=== PATIENT | female | born 1990 | race Caucasian/White ===

== ENCOUNTER 2016-06-24 20:47 | Emergency (ER) | payer MEDICAID ==
[2014-10-16 10:02] VITALS: BMI 36.2
[~2016-06-24 20:47] MED LIST: BUSPAR5 MG PO; PROAIR HFA8.5 GM INH; VIMOVO 500-201 EACH PO
== END 2016-06-24 22:30 | disposition home or self-care (01) ==
LOC: D.ER 20:47
DX: H66.42 Suppurative otitis media, unspecified, left ear (principal); H60.12 Cellulitis of left external ear; J45.909 Unspecified asthma, uncomplicated; F17.200 Nicotine dependence, unspecified, uncomplicated

== ENCOUNTER 2016-12-05 14:16 | Emergency (ER) | payer MEDICAID ==
[2014-10-16 10:02] VITALS: BMI 36.2
[2016-12-05 15:02] LABS: BASOPHILS 0.1 % (0-2); EOSINOPHILS 2.2 % (0-7); HEMATOCRIT 37.6 % (36.0-48.0); HEMOGLOBIN 12.7 g/dL (12-16); IMMATURE GRANULOCYTES 0.2 % (0-5); LYMPHOCYTES 7.7 % (15-50); MCH 27.5 pg (26.0-34.0); MCHC 33.8 g/dL (31.0-37.0); MCV 81.6 fL (80.0-100.0); MEAN PLATELET VOLUME 9.8 fL (7.4-10.4); MONOCYTES 7.7 % (2-11); NEUTROPHILS 82.1 % (40-80); PLATELET COUNT 283 10x3/uL (130-400); RBC 4.61 10x6/uL (4.00-5.40); RDW 14.7 % (11.5-14.5); WBC 12.3 10x3/uL (4.8-10.8)
[2016-12-05 15:23] LABS: HCG SERUM POSITIVE (NEGATIVE)
[2016-12-05 17:09] LABS: APPEARANCE CLOUDY (CLEAR); BILIRUBIN NEGATIVE (NEGATIVE); COLOR DK YELLOW (YELLOW); GLUCOSE NEGATIVE (NEGATIVE); KETONE NEGATIVE (NEGATIVE); NITRITE NEGATIVE (NEGATIVE); PROTEIN 1+ mg/dL (NEGATIVE); UROBILINOGEN NORMAL (NORMAL)
[2016-12-05 17:13] LABS: EPITHELIAL CELLS 0-5 /hpf (0-5); RED CELLS - URINE >50 /hpf (0-5); WHITE CELLS - URINE 0-5 /hpf (0-5)
[2016-12-05 17:14] LABS: BACTERIA FEW /hpf (NONE SEEN)
[2016-12-05 21:36] LABS: BASOPHILS 0.1 % (0-2); EOSINOPHILS 0 % (0-7); HEMATOCRIT 30.5 % (36.0-48.0); HEMOGLOBIN 10.5 g/dL (12-16); IMMATURE GRANULOCYTES 0.1 % (0-5); LYMPHOCYTES 3.9 % (15-50); MCHC 34.4 g/dL (31.0-37.0); MCV 81.3 fL (80.0-100.0); MEAN PLATELET VOLUME 9.8 fL (7.4-10.4); MONOCYTES 4.3 % (2-11); NEUTROPHILS 91.6 % (40-80); PLATELET COUNT 280 10x3/uL (130-400); RBC 3.75 10x6/uL (4.00-5.40); RDW 14.5 % (11.5-14.5); WBC 14.5 10x3/uL (4.8-10.8)
== END 2016-12-05 21:47 | disposition home or self-care (01) ==
LOC: D.ER 14:16
PROVIDERS: Emergency Medicine; Nurse Practitioner Acute Care
DX: O03.9 Complete or unspecified spontaneous abortion without complication (principal); F17.200 Nicotine dependence, unspecified, uncomplicated

== ENCOUNTER 2017-11-25 06:01 | Emergency (ER) | payer MEDICAID ==
[~2017-11-25] VITALS: Ht 172.7 cm; Wt 90.9 kg
[2017-11-25 06:04] VITALS: Ht 172.7 cm; Wt 90.9 kg
[2017-11-25] MEDS ORDERED: TYLENOL W/CODEI1 TAB PO (06:16)
[2017-11-25 07:35] VITALS: BP 132/89
== END 2017-11-25 07:35 | disposition home or self-care (01) ==
LOC: D.ER 06:01
DX: S01.01XA Laceration without foreign body of scalp, initial encounter (principal); W10.9XXA Fall (on) (from) unspecified stairs and steps, initial encounter; Y93.89 Activity, other specified; Y92.019 Unspecified place in single-family (private) house as the place of occurrence of the external cause; S09.90XA Unspecified injury of head, initial encounter; S60.221A Contusion of right hand, initial encounter

== ENCOUNTER 2017-12-07 12:27 | Emergency (ER) | payer MEDICAID ==
[~2017-12-07] VITALS: Ht 172.7 cm; Wt 90.9 kg
[~2017-12-07 12:27] MED LIST changes: +TYLENOL W/CODEI1 TAB PO
[2017-12-07 12:34] VITALS: Ht 172.7 cm; Wt 90.9 kg
== END 2017-12-07 12:55 | disposition home or self-care (01) ==
LOC: D.ER 12:27
DX: S01.01XD Laceration without foreign body of scalp, subsequent encounter (principal); X58.XXXD Exposure to other specified factors, subsequent encounter; Z48.02 Encounter for removal of sutures; F17.200 Nicotine dependence, unspecified, uncomplicated

== ENCOUNTER 2018-02-19 19:44 | Emergency (ER) | payer MEDICAID ==
[~2018-02-19] VITALS: Ht 172.7 cm; Wt 95.3 kg
[2018-02-19 19:48] VITALS: Ht 172.7 cm; Wt 95.3 kg
[2018-02-19] MEDS ORDERED: VISTARIL25 MG PO (20:43)
[2018-02-19 21:26] VITALS: BP 121/72
== END 2018-02-19 21:27 | disposition home or self-care (01) ==
LOC: D.ER 19:44
DX: F41.9 Anxiety disorder, unspecified (principal); F17.200 Nicotine dependence, unspecified, uncomplicated

== ENCOUNTER 2018-02-28 19:07 | Emergency (ER) | payer MEDICAID ==
[~2018-02-28] VITALS: Ht 172.7 cm; Wt 90.9 kg
[~2018-02-28 19:07] MED LIST changes: +VISTARIL25 MG PO
[2018-02-28 19:18] VITALS: Ht 172.7 cm; Wt 90.9 kg
[2018-02-28 19:48] LABS: BASOPHILS 0.1 % (0-2); EOSINOPHILS 0.2 % (0-7); HEMATOCRIT 39.4 % (36.0-48.0); HEMOGLOBIN 12.5 g/dL (12-16); IMMATURE GRANULOCYTES 0.4 % (0-5); LYMPHOCYTES 11.2 % (15-50); MCH 23.5 pg (26.0-34.0); MCHC 31.7 g/dL (31.0-37.0); MCV 73.9 fL (80.0-100.0); MEAN PLATELET VOLUME 10.1 fL (7.4-10.4); MONOCYTES 7.3 % (2-11); NEUTROPHILS 80.8 % (40-80); PLATELET COUNT 293 10x3/uL (130-400); RBC 5.33 10x6/uL (4.00-5.40); RDW 15.9 % (11.5-14.5)
[2018-02-28 20:01] LABS: APPEARANCE CLEAR (CLEAR); BILIRUBIN NEGATIVE (NEGATIVE); COLOR YELLOW (YELLOW); GLUCOSE NEGATIVE (NEGATIVE); KETONE NEGATIVE (NEGATIVE); NITRITE NEGATIVE (NEGATIVE); PROTEIN NEGATIVE (NEGATIVE); SPECIFIC GRAVITY 1.025 (1.005-1.020); UROBILINOGEN NORMAL (NORMAL)
[2018-02-28 20:02] LABS: UDS - AMPHET NEGATIVE QUAL (NEGATIVE); UDS - BARB NEGATIVE QUAL (NEGATIVE); UDS - BENZO NEGATIVE QUAL (NEGATIVE); UDS - COCAINE NEGATIVE QUAL (NEGATIVE); UDS - OPIATE NEGATIVE QUAL (NEGATIVE); UDS - PCP NEGATIVE QUAL (NEGATIVE); UDS - THC NEGATIVE QUAL (NEGATIVE)
[2018-02-28 20:10] LABS: ALKALINE PHOSPHATASE 69 U/L (46-116); ALT (SGPT) 22 U/L (10-68); CALC OSMOLALITY 282 mosm/kg (275-300); CALCIUM 9.3 mg/dL (8.5-10.1); CARBON DIOXIDE 24.1 mmol/L (21.0-32.0); CHLORIDE - SERUM 105 mmol/L (98-107); CREATININE - SERUM 0.7 mg/dL (0.6-1.3); GLUCOSE 88 mg/dL (74-106); POTASSIUM - SERUM 3.2 mmol/L (3.5-5.1); SODIUM 143 mmol/L (136-145); UREA NITROGEN 9 mg/dL (7-18); eGFR NON AFRICAN AMERICAN > 90 mL/min (90-120)
[2018-02-28 22:30] LABS: HCG URINE NEGATIVE (NEGATIVE)
[2018-02-28 23:33] VITALS: BP 132/81
== END 2018-03-01 00:03 ==
LOC: D.ER 19:07
PROVIDERS: Emergency Medicine
DX: F23 Brief psychotic disorder (principal); F17.200 Nicotine dependence, unspecified, uncomplicated

== ENCOUNTER 2018-06-29 19:12 | Emergency (ER) | payer MEDICAID ==
[2018-06-29 19:14] VITALS: BMI 32.6
[2018-06-29] MEDS ORDERED: KLONOPIN1 MG PO (19:16)
[2018-06-29] MEDS ORDERED: LITHIUM CARBON150 MG PO (19:16)
[2018-06-29] MEDS ORDERED: BUTALB-APAP-CA1 EACH PO (19:17)
[2018-06-29] MEDS ORDERED: GABAPENTIN100 MG PO (19:17)
[2018-06-29 19:45] LABS: BASOPHILS 0.2 % (0-2); EOSINOPHILS 5.5 % (0-7); HEMATOCRIT 33.7 % (36.0-48.0); HEMOGLOBIN 10.8 g/dL (12-16); IMMATURE GRANULOCYTES 0.1 % (0-5); LYMPHOCYTES 11.8 % (15-50); MCH 24.6 pg (26.0-34.0); MCV 76.8 fL (80.0-100.0); MONOCYTES 8.3 % (2-11); NEUTROPHILS 74.1 % (40-80); PLATELET COUNT 305 10x3/uL (130-400); RBC 4.39 10x6/uL (4.00-5.40); RDW 15.4 % (11.5-14.5); WBC 10.5 10x3/uL (4.8-10.8)
[2018-06-29 19:46] LABS: APPEARANCE HAZY (CLEAR); BILIRUBIN NEGATIVE (NEGATIVE); COLOR DK YELLOW (YELLOW); GLUCOSE NEGATIVE (NEGATIVE); KETONE NEGATIVE (NEGATIVE); NITRITE NEGATIVE (NEGATIVE); PROTEIN TRACE mg/dL (NEGATIVE); SPECIFIC GRAVITY 1.025 (1.005-1.020); UROBILINOGEN NORMAL (NORMAL)
[2018-06-29 19:49] LABS: EPITHELIAL CELLS 0-5 /hpf (0-5); RED CELLS - URINE 25-50 /hpf (0-5); WHITE CELLS - URINE 0-5 /hpf (0-5)
[2018-06-29 19:50] LABS: BACTERIA FEW /hpf (NONE SEEN)
[2018-06-29 19:58] LABS: LITHIUM 0.53 mmol/L (0.60-1.20); SALICYLATES 4.5 mg/dL (2.8-20.0)
[2018-06-29 19:59] LABS: UDS - AMPHET POSITIVE QUAL (NEGATIVE); UDS - BARB POSITIVE QUAL (NEGATIVE); UDS - BENZO POSITIVE QUAL (NEGATIVE); UDS - COCAINE NEGATIVE QUAL (NEGATIVE); UDS - OPIATE POSITIVE QUAL (NEGATIVE); UDS - PCP NEGATIVE QUAL (NEGATIVE); UDS - THC NEGATIVE QUAL (NEGATIVE)
[2018-06-29 20:04] LABS: ALBUMIN 3.7 g/dL (3.4-5.0); ALKALINE PHOSPHATASE 72 U/L (46-116); ALT (SGPT) 23 U/L (10-68); BILIRUBIN - TOTAL 0.34 mg/dL (0.2-1.3); CALC OSMOLALITY 276 mosm/kg (275-300); CHLORIDE - SERUM 106 mmol/L (98-107); CREATININE - SERUM 0.8 mg/dL (0.6-1.3); GLUCOSE 84 mg/dL (74-106); POTASSIUM - SERUM 3.6 mmol/L (3.5-5.1); PROTEIN - SERUM 7.6 g/dL (6.4-8.2); SODIUM 140 mmol/L (136-145); UREA NITROGEN 11 mg/dL (7-18); eGFR NON AFRICAN AMERICAN > 90 mL/min (90-120)
[2018-06-30 02:47] VITALS: BP 113/82
== END 2018-06-30 03:10 | disposition home or self-care (01) ==
LOC: D.ER 19:12
PROVIDERS: Emergency Medicine
DX: F19.10 Other psychoactive substance abuse, uncomplicated (principal)